=== PATIENT | male | born 1930 | race Caucasian/White ===

== ENCOUNTER 2016-09-14 06:42 | Day surgery (SDC) | payer BC ==
--- NOTE | ~2016-09-14 | EGD ---
EGD REPORT [facility] [address] [address] NAME: DEEPA FERRER : [birth year] STATUS : REG [facility] [place] PAT#: [id number] AGE: 86 ADM/REG DATE : 09/14/16 MR#: [id number] REPORT SERV DATE: 09/14/16 DICTATED BY: KEATON TUTLTE DATE: 09/14/16 REPORT STATUS : Draft [facility]ANS[facility]ED [facility]: [facility] DATE: 09/14/16 Endoscopy Center Patient Name: Deepa Ferrer Date of : 1930 Attending MD: KEATON TUTTLE MD Procedure Date No Time: 09/14/2016 Procedure: Upper GI endoscopy Indications: Diarrhea Referring MD: DARRELL EMERSON Medicines: Propofol per Anesthesia Complications: No immediate complications. Procedure: Pre-Anesthesia Assessment: - ASA Grade Assessment: II - A patient with mild systemic disease. After obtaining informed consent, the endoscope was passed under direct vision. Throughout the procedure, the patient's blood pressure, pulse, and oxygen saturations were monitored continuously. The GIF [id number] was introduced through the mouth, and advanced to the second part of duodenum. The upper GI endoscopy was accomplished without difficulty. The patient tolerated the procedure well. Findings: A benign-appearing, intrinsic mild stenosis was found and was traversed Multiple esophageal rings seen, Biopsies were obtained to rule out eosinophilic esophagitis. A 3 cm hiatus hernia was present. Diffuse moderate inflammation characterized by erosions, erythema and friability was found in the stomach. Biopsies were taken with a cold forceps for histology. The examined duodenum was normal. Biopsies were taken with a cold forceps for histology. Impression: - Benign-appearing esophageal stricture. - Hiatus hernia. - Chronic gastritis. Biopsied. - Normal examined duodenum. Biopsied. Recommendation: - Discharge patient to home (ambulatory). - Return to my office in 3 weeks. Procedure Code(s): --- Professional --- 50824, Esophagogastroduodenoscopy, flexible, transoral; with biopsy, single or multiple EGD REPORT [facility] [address] [place]. [address] NAME: DEEPA FERRER : [birth year] STATUS : REG [facility] [place] PAT#: [id number] AGE: 86 ADM/REG DATE : 09/14/16 MR#: [id number] REPORT SERV DATE: 09/14/16 DICTATED BY: KEATON TUTTLE. DATE: 09/14/16 REPORT STATUS : Draft TRANSCRIBED BY: [employer] DATE: 09/14/16 Diagnosis Code(s): --- Professional --- K22.2, Esophageal obstruction K44.9, Diaphragmatic hernia without obstruction or gangrene K29.50, Unspecified chronic gastritis without bleeding R19.7, Diarrhea, unspecified CPT copyright 2013 [employer]. All rights reserved. The codes documented in this report are preliminary and upon sole cementer review may be revised to meet current compliance requirements. Keaton Tuttle MD KEATON TUTTLE MD 09/14/2016 8:46 AM This report has been signed electronically. Number of Addenda: 0 Note Initiated On: 09/14/2016 8:28 AM Scope Withdrawal Time 0 hours 0 minutes 0 seconds [address] [place] [address]
--- NOTE | ~2016-09-14 | EGD ---
EGD REPORT [facility] [address] [address] NAME: DEEPA FERRER : 34 [place]US : [place] [facility] [place] [id number] AGE: 86 ADM/REG DATE : 09/14/16 MR#: [id number] REPORT SERV DATE: 09/14/16 DICTATED BY: KEATON TUTTLE DATE: 09/14/16 REPORT STATUS : Draft [facility]ANSCRIBED BY: [facility] DATE: 09/14/16 Endoscopy Center Patient Name: Deeap Ferrer Date of : 1930 Attending MD: KEATON TUTTLE MD Procedure Date No Time: 09/14/2016 Procedure: Colonoscopy Indications: Chronic diarrhea Referring MD: DARRELL EMERSON Medicines: Propofol per Anesthesia Complications: No immediate complications. Procedure: Pre-Anesthesia Assessment: - ASA Grade Assessment: II - A patient with mild systemic disease. After I obtained informed consent, the scope was passed under direct vision. Throughout the procedure, the patient's blood pressure, pulse, and oxygen saturations were monitored continuously. The CF [id number] was introduced through the anus and advanced to the cecum, identified by appendiceal orifice and ileocecal valve. The colonoscopy was performed without difficulty. The patient tolerated the procedure well. The quality of the bowel preparation was good. Findings: The perianal and digital rectal examinations were normal. Diffuse moderate inflammation characterized by congestion (edema), erosions, erythema, friability and granularity was found in the entire colon. Biopsies were taken with a cold forceps for histology. Impression: - Diffuse moderate inflammation was found in the entire examined colon secondary to pancolitis. Biopsied. Recommendation: - Return to my office in 3 weeks. Start pt on apriso 1.5 gm po qd. Procedure Code(s): --- Professional --- 60738, Colonoscopy, flexible, proximal to splenic flexure; with biopsy, single or multiple Diagnosis Code(s): --- Professional --- K52.9, Noninfective gastroenteritis and colitis, unspecified EGD REPORT [facility] [address] [place]. [address] NAME: DEEPA FERRER : 34 [place]US : [place] [facility] [place] [id number] AGE: 86 ADM/REG DATE : 09/14/16 MR#: [id number] REPORT SERV DATE: 09/14/16 DICTATED BY: KEATON TUTTLE. DATE: 09/14/16 REPORT STATUS : Draft TRANSCRIBED BY: [employer] DATE: 09/14/16 CPT copyright 2013 [employer]. All rights reserved. The codes documented in this report are preliminary and upon acting instructor review may be revised to meet current compliance requirements. Keaton Tuttle MD KEATON TUTTLE MD 09/14/2016 8:58 AM This report has been signed electronically. Number of Addenda: 0 Note Initiated On: 09/14/2016 8:27 AM Scope Withdrawal Time 0 hours 5 minutes 11 seconds [address] [facility] [place] [address]
== END 2016-09-14 23:59 | disposition home or self-care (01) ==
LOC: DMU 06:42
PROVIDERS: Internal Medicine Gastroenterology
PROC: 0DB58ZX Excision of Esophagus, Via Natural or Artificial Opening Endoscopic, Diagnostic (ICD-10-PCS; 2016-09-14)
PROC: 0DB68ZX Excision of Stomach, Via Natural or Artificial Opening Endoscopic, Diagnostic (ICD-10-PCS; 2016-09-14)
PROC: 0DBE8ZX Excision of Large Intestine, Via Natural or Artificial Opening Endoscopic, Diagnostic (ICD-10-PCS; principal; 2016-09-14 08:00)
PROC: 0DB98ZX Excision of Duodenum, Via Natural or Artificial Opening Endoscopic, Diagnostic (ICD-10-PCS; 2016-09-14 08:00)
DX: K52.9 Noninfective gastroenteritis and colitis, unspecified (principal); K20.9 Esophagitis, unspecified; K22.2 Esophageal obstruction; K44.9 Diaphragmatic hernia without obstruction or gangrene; E11.9 Type 2 diabetes mellitus without complications; M35.3 Polymyalgia rheumatica; Z88.1 Allergy status to other antibiotic agents; Z88.8 Allergy status to other drugs, medicaments and biological substances; Z79.899 Other long term (current) drug therapy; Z90.89 Acquired absence of other organs; Z90.49 Acquired absence of other specified parts of digestive tract; Z98.890 Other specified postprocedural states
CPT/HCPCS: 82962; 88305